=== PATIENT | female | born 1945 | race African-American/Black ===

== ENCOUNTER 2020-10-26 12:36 | Inpatient (IN) | payer OTHER, MEDICAID ==
[~2020-10-26] VITALS: Ht 165.1 cm; Wt 108.9 kg
[2020-10-26 12:36] VITALS: BP 180/109
--- NOTE | 2020-10-26 12:36 | NUR ---
ED Nurse Note: Pt walked in to ED from home c/o generalized body weakness onset this AM. Pt also c/o non radiating midsternal chest pain. Per pt, she felt dizzy after taking a new BP meds, pt unable to recall the meds name. No SOB, on room air. 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 AAOx4, verbally responsive. ERMD at bedside.
--- NOTE | 2020-10-26 12:55 | NUR ---
EMERGENCY CONTACT: Nino (son): [phone]
--- NOTE | 2020-10-26 13:15 | NUR ---
ED Nurse Note: Blood sent to lab.
--- NOTE | 2020-10-26 13:44 | NUR ---
ED Nurse Note: x-ray at bedside.
[2020-10-26 13:52] LABS: BASOPHILS % (AUTO) 0.5 % (0.0-2.0); EOSINOPHILS % (AUTO) 0.2 % (0.0-3.0); HEMATOCRIT 45.8 % (37.0-47.0); HEMOGLOBIN 13.8 G/DL (12.0-16.0); LYMPHOCYTES % (AUTO) 14.4 % (20.0-45.0); MEAN CORPUSCULAR VOLUME 82 FL (80-99); MONOCYTES % (AUTO) 4.8 % (1.0-10.0); NEUTROPHILS % (AUTO) 80.2 % (45.0-75.0); PLATELET COUNT 173 K/UL (150-450); RED BLOOD COUNT 5.56 M/UL (4.20-5.40); RED CELL DISTRIBUTION WIDTH 16.2 % (11.6-14.8); WHITE BLOOD COUNT 10.5 K/UL (4.8-10.8)
[2020-10-26 14:00] VITALS: BP 169/97
[2020-10-26 14:02] LABS: ANION GAP 6 mmol/L (5-15); BLOOD UREA NITROGEN 31 mg/dL (7-18); CALCIUM 8.5 MG/DL (8.5-10.1); CARBON DIOXIDE 27 MMOL/L (21-32); CHLORIDE 106 MMOL/L (98-107); POTASSIUM 3.3 MMOL/L (3.5-5.1); SODIUM 139 MMOL/L (136-145)
[2020-10-26 14:13] LABS: ALANINE AMINOTRANSFERASE 17 U/L (12-78); ALBUMIN 3.1 G/DL (3.4-5.0); ALKALINE PHOSPHATASE 109 U/L (46-116); ASPARTATE AMINO TRANSFERASE 17 U/L (15-37); BILIRUBIN,TOTAL 0.4 MG/DL (0.2-1.0)
--- NOTE | 2020-10-26 14:28 | Emergency Room Report ---
History of Present Illness General Chief Complaint: Dizziness Source: Patient, EMS (Enoch Rangel MD) Present Illness HPI 75-year-old female presents for evaluation. Brought in by EMS from home. Feeling dizzy and feels short of breath. Denied chest pain today but states she was having some discomfort in her chest yesterday. BP high. States she recently changed her BP meds. Does not know the name of the new ones. Denies fevers or chills. No other aggravating relieving factors. Denies any other associated symptoms (Enoch Rangel MD) Allergies: Coded Allergies: No Known Allergies (Unverified , 10/26/20) COVID-19 Screening Contact w/high risk pt: No Experienced COVID-19 symptoms?: No COVID-19 Testing performed COGNOS LEAD: No (Enoch Rangel MD) Patient History Past Medical History: DM, other - hyperlipidemia Social History: Denies: smoking, alcohol use, drug use Immunizations: UTD Reviewed Nursing Documentation: PMH: Agreed; PSxH: Agreed (Enoch Rangel MD) Nursing Documentation-PMH Hx Hypertension: Yes - HYPERLIPIDEMIA Hx Diabetes: Yes (Enoch Rangel MD) Review of Systems All Other Systems: negative except mentioned in HPI (Enoch Rangel MD) Physical Exam Vital Signs Date Time Temp Pulse Resp B/P (MAP) Pulse Ox O2 Delivery O2 Flow Rate FiO2 10/26/20 12:32 97.5 101 16 180/109 (132) 97 Room Air Sp02 EP Interpretation: reviewed, normal General Appearance: no apparent distress, alert, GCS 15, non-toxic, obese Head: normocephalic, atraumatic Eyes: bilateral eye normal inspection, bilateral eye PERRL ENT: hearing grossly normal, normal pharynx, no angioedema, normal voice Neck: full range of motion, supple/symm/no masses Respiratory: chest non-tender, lungs clear, normal breath sounds, speaking full sentences Cardiovascular #1: regular rate, rhythm, no edema Cardiovascular #2: 2+ carotid (R), 2+ carotid (L), 2+ radial (R), 2+ radial (L), 2+ dorsalis pedis (R), 2+ dorsalis pedis (L) Gastrointestinal: normal bowel sounds, non tender, soft, non-distended, no guarding, no rebound Rectal: deferred Genitourinary: normal inspection, no CVA tenderness Musculoskeletal: back normal, normal range of motion, gait/station normal, non- tender Neurologic: alert, motor strength/tone normal, oriented x3, sensory intact, responsive, speech normal Psychiatric: judgement/insight normal, memory normal, mood/affect normal, no suicidal/homicidal ideation Reflexes: 3+ bicep (R), 3+ bicep (L), 3+ tricep (R), 3+ tricep (L), 3+ knee (R), 3+ knee (L) Skin: other - see nursing notes Lymphatic: no adenopathy (Enoch Rangel MD) Medical Decision Making Diagnostic Impression: Primary Impression: ACS (acute coronary syndrome) Additional Impression: Hypertension Laboratory Tests Test 10/26/20 13:15 White Blood Count 10.5 K/UL (4.8-10.8) Red Blood Count 5.56 M/UL (4.20-5.40) H Hemoglobin 13.8 G/DL (12.0-16.0) Hematocrit 45.8 % (37.0-47.0) Mean Corpuscular Volume 82 FL (80-99) Mean Corpuscular Hemoglobin 24.8 PG (27.0-31.0) L Mean Corpuscular Hemoglobin Concent 30.1 G/DL (32.0-36.0) L Red Cell Distribution Width 16.2 % (11.6-14.8) H Platelet Count 173 K/UL (150-450) Mean Platelet Volume 8.6 FL (6.5-10.1) Neutrophils (%) (Auto) 80.2 % (45.0-75.0) H Lymphocytes (%) (Auto) 14.4 % (20.0-45.0) L Monocytes (%) (Auto) 4.8 % (1.0-10.0) Eosinophils (%) (Auto) 0.2 % (0.0-3.0) Basophils (%) (Auto) 0.5 % (0.0-2.0) Sodium Level 139 MMOL/L (136-145) Potassium Level 3.3 MMOL/L (3.5-5.1) L Chloride Level 106 MMOL/L (98-107) Carbon Dioxide Level 27 MMOL/L (21-32) Anion Gap 6 mmol/L (5-15) Blood Urea Nitrogen 31 mg/dL (7-18) H Creatinine 1.0 MG/DL (0.55-1.30) Estimat Glomerular Filtration Rate > 60 mL/min (>60) Glucose Level 173 MG/DL (74-106) H Calcium Level 8.5 MG/DL (8.5-10.1) Total Bilirubin 0.4 MG/DL (0.2-1.0) Aspartate Amino Transf (AST/SGOT) 17 U/L (15-37) Alanine Aminotransferase (ALT/SGPT) 17 U/L (12-78) Alkaline Phosphatase 109 U/L (46-116) Troponin I 0.007 ng/mL (0.000-0.056) Pro-B-Type Natriuretic Peptide 407 pg/mL (0-125) H Total Protein 6.1 G/DL (6.4-8.2) L Albumin 3.1 G/DL (3.4-5.0) L Globulin 3.0 g/dL Albumin/Globulin Ratio 1.0 (1.0-2.7) (Enoch Rangel MD) ER Course Please see above note. Discussed with Dr. Lara. (Shawn Moore MD) EKG Diagnostic Results Troponin ordered: Yes Rate: normal Rhythm: NSR ST Segments: no acute changes ASA given to the pt in ED: Yes (Enoch Rangel MD) Rhythm Strip Diag. Results EP Interpretation: yes Rhythm: NSR, no PVC's, no ectopy (Enoch Rangel MD) Chest X-Ray Diagnostic Results Chest X-Ray Diagnostic Results : Chest X-Ray Ordered: Yes # of Views/Limited/Complete: 1 View Indication: Shortness of Breath EP Interpretation: Yes Interpretation: no pneumothorax, other - cardiomegaly Impression: Other - cardiomegaly Electronically Signed by: Electronically signed by Enoch Rangel MD (Enoch Rangel MD) Last Vital Signs Date Time Temp Pulse Resp B/P (MAP) Pulse Ox O2 Delivery O2 Flow Rate FiO2 10/26/20 12:36 97.5 101 16 180/109 97 Room Air Status: improved (Enoch Rangel MD) Status: improved (Shawn Moore MD) Disposition: ADMITTED INPATIENT Condition: Serious Referrals: NOT CHOSEN IPA/,REFERRING (PCP) Enoch Rangel MD Oct 26, 2020 14:28 Shawn Moore MD Oct 26, 2020 17:03
[2020-10-26] MEDS ORDERED: Lidocaine 2% Visc 15ml soln ORAL ONE (15:30)
[2020-10-26] MEDS ORDERED: Mylanta II UD 30ml ORAL ONE (15:30)
--- NOTE | 2020-10-26 15:39 | Diagnostic Imaging Report ---
Indication: Shortness of breath Technique: XRAY Chest 1v Comparison: None Findings: Heart is enlarged. Mediastinal contours are sharp. There is slight thickening of the right paratracheal stripe. Atherosclerotic calcification is noted in the aorta. No definite focal consolidation is seen. No pleural effusion or pneumothorax. There are degenerative changes in the spine. No acute abnormality. Impression: Cardiomegaly. Slight prominence of the right paratracheal stripe compared to the related to ectatic vasculature. Possibility of lymphadenopathy or neoplastic soft tissue thickening in this region not excluded. Recommend follow-up CT of the chest, ideally with contrast. No focal airspace consolidation, pleural effusion or pneumothorax.
[2020-10-26 16:52] VITALS: BP 137/73
[2020-10-26 18:01] VITALS: BP 140/90
[2020-10-26] MEDS ORDERED: OMEPRAZOLE20 M2 ORAL (18:16)
[2020-10-26] MEDS ORDERED: ASPIRIN81 MG ORAL (18:16)
[2020-10-26] MEDS ORDERED: ATORVASTATIN CA20 MG ORAL (18:16)
[2020-10-26] MEDS ORDERED: ZETIA10 MG ORAL (18:16)
[2020-10-26] MEDS ORDERED: ISOSORBIDE MONO20 MG PO (18:16)
[2020-10-26] MEDS ORDERED: DIOVAN320 MG ORAL (18:16)
[2020-10-26] MEDS ORDERED: HYDROCHLOROTHIA50 MG ORAL (18:16)
[2020-10-26] MEDS ORDERED: DEXILANT60 MG ORAL (18:16)
[2020-10-26] MEDS ORDERED: ACTOS15 MG ORAL (18:16)
--- NOTE | 2020-10-26 18:19 | NUR ---
ED Nurse Note: report given to kyle craig
--- NOTE | 2020-10-26 18:30 | NUR ---
TRANSFER TO FLOOR: Patient transferred to Telemetry via gurney accompanied by 2 RN. Pt AAOx4, no SOB. on room air. IV line on left AC 18g patent and intact. No skin issues. All belongings sent with the patient.
--- NOTE | 2020-10-26 18:30 | NUR ---
NURSE NOTES: patient received from ER. Patients belongings verified and acknowledged patient oriented to room. patient in stable condition, AAOx4 with no complaints of chest pain. patient on room air with oxygen saturation within normal limits. the patients bed was placed in lowest position locked, side rails x3 bed alarm in zone 1 and call light within reach. Patient instructed to press call light for further needs.
[2020-10-26] MEDS ORDERED: Heparin 25,000u/D5W 500ml 500 ML IV SCH (19:15)
--- NOTE | 2020-10-26 19:53 | NUR ---
NURSE HAND-OFF REPORT: Important Events on Shift:[patient admitted from ED at 1830] Patient Status: [Full code] Diet: [N/A] Pending Orders: [N/A] Pending Results/Labs:[N/A] Pending MD notification:[N/A] Latest Vital Signs: Temperature 97.5 , Pulse 95 , B/P 140 /90 , Respiratory Rate 16 , O2 SAT 100 , Room Air, O2 Flow Rate . Vital Sign Comment: [] EKG Rhythm: Sinus Rhythm Rhythm change?: MD Notified?: - MD Response: Latest Brown Fall Score: Fall Risk: Safety Measures: Call light , Bed Alarm , Side Rails , Bed position . Fall Precautions: Report given to [MARLEY Singh].
--- NOTE | 2020-10-26 19:57 | NUR ---
NURSE NOTES: Report received from MARLEY Llamas. Patient is awake on bed, alert and oriented x 4/ personnel monitor is in place, shows sinus rhythm with no complaints of chest pain at this time. On room air, saturating 98% and no difficulty nor shortness of breath. On cardiac diet, instructed and amenable. IV site is on left AC g-18 saline locked that is patent and intact. Patient is continent and use bedside commode. Safety measures are in place, bed in lowest and locked position, side rails up x 2, call light button and bedside table within reach, instructed to call for any assistance needed, will continue plan of care.
[2020-10-26 20:00] VITALS: BP 151/98
--- NOTE | 2020-10-26 20:28 | NUR ---
NURSE NOTES: Called Dr. Lara to get an order for pain medication and informed him about patient's complaints of pain on right lower leg. Awaiting for call back.
[2020-10-26] MEDS: Heparin 5000 units/ml inj SUBQ SCH (21:28)
--- NOTE | 2020-10-26 21:40 | NUR ---
NURSE NOTES: Received an order from Dr. Lara, will carry out.
[2020-10-26] MEDS ORDERED: Metoprolol Tartrate 50mg tab ORAL ONE (22:45)
--- NOTE | 2020-10-26 23:20 | NUR ---
NURSE NOTES: Patient complaints of generalized itchiness, called and order received. Will carry out.
--- NOTE | 2020-10-26 23:29 | Consultation ---
DATE OF CONSULTATION: 10/26/2020 CARDIOLOGY CONSULTATION CONSULTING PHYSICIAN: Shawn Pérez M.D. REQUESTING PHYSICIAN: Clarence Lara M.D. REASON: Acute coronary syndrome. HISTORY OF PRESENT ILLNESS: This is a 75-year-old female with risk factors for premature coronary artery disease. She presented to the emergency room complaining of dizziness and shortness of breath. She was noted to have a significantly elevated blood pressure as well. She noted chest discomfort yesterday, but not today. She apparently recently had changes in her medication regimen, although does not recall the names. She has not had any other changes in her medical condition. She denies recent illness or COVID-19 exposures. PAST MEDICAL HISTORY: Includes hypertension, hyperlipidemia, type 2 diabetes mellitus, gastroesophageal reflux disease. ALLERGIES: None known. MEDICATIONS: Reviewed and reconciled. FAMILY HISTORY: Noncontributory. SOCIAL HISTORY: Negative for smoking, alcohol, or substance abuse. REVIEW OF SYSTEMS: No fevers or chills. No COVID-19 symptoms or exposures. No history of seizure or stroke. No change in bowel habits. She does take proton pump inhibitor therapy. There is no known history of kidney disease. Diabetes is reportedly managed with diet. There is no history of asthma or abnormal blood clotting. There is no known history of thyroid disorder. PHYSICAL EXAMINATION: VITAL SIGNS: Blood pressure 180/109, pulse 101, respirations 16, afebrile, oxygen saturation on room air 97%. HEENT: Conjunctivae pink. Oropharynx clear. NECK: Supple. Jugular venous pressure is slightly elevated. No bruits. LUNGS: Clear. CARDIAC: Regular rhythm and rate. Normal S1, S2 with a fourth heart sound. ABDOMEN: Soft, nontender. No bruits. EXTREMITIES: Good pulses. No edema. NEUROLOGIC: Nonfocal. LABORATORY AND DIAGNOSTIC DATA: Chest x-ray reveals possible paratracheal thickening. EKG reveals sinus rhythm, no acute ST-T wave abnormalities. Troponin is 0.07. White count 10, hemoglobin 13.8. Sodium 139, potassium 3.3, bicarb 27, BUN 31, creatinine 1. Pro-natriuretic peptide is 407. Albumin 3.1. IMPRESSION: 1. Hypertensive urgency. 2. Acute coronary syndrome. 3. Hypokalemia. 4. Type 2 diabetes mellitus. 5. Mild protein-calorie malnutrition. 6. Acute diastolic congestive heart failure, likely precipitated by blood pressure elevation. PLAN: 1. Cardiac monitoring. 2. Serial troponins. 3. Check lipid panel and thyroid function. 4. Replace potassium. 5. Check magnesium. 6. Antiplatelet therapy. 7. DVT prophylaxis. 8. Cautious up titration of multi-drug antihypertensive and antianginal regimen. 9. Further recommendations to follow, which may include myocardial perfusion scan. Shawn Pérez M.D. DR: JANNA JOB#: [id number] CC:
[2020-10-26] MEDS ORDERED: DiphenhydrAMINE 50mg/ml Inj IVP PRN (23:30)
[2020-10-26] MEDS: Nitroglycerin 2% oint pkt TOPIC SCH (23:53)
[2020-10-27] VITALS: BP 143/86
--- NOTE | 2020-10-27 00:29 | History and Physical Report ---
DATE OF ADMISSION: 10/26/2020 HISTORY OF PRESENT ILLNESS: This is a 75-year-old female who came to the hospital with complaints of chest pain. She was seen and evaluated in the emergency room. She felt dizzy and short of breath. She also reported that blood pressure has been high recently. The patient home medications. At this time, she appears to be comfortable. Denies chest pain on my assessment. PAST MEDICAL HISTORY: Notable for diabetes mellitus, hyperlipidemia, hypertension. SOCIAL HISTORY: No alcohol or tobacco usage. REVIEW OF SYSTEMS: Denies any headaches, hematemesis, melena, hematochezia, or weight loss. PHYSICAL EXAMINATION: GENERAL: A 75-year-old female. HEENT: Unremarkable. LUNGS: Clear breath sounds bilaterally. ABDOMEN: Soft. EXTREMITIES: There is no edema. VITAL SIGNS: Blood pressure 140/90, heart rate 74, respirations 18, O2 sat 98% on room air. LABORATORY DATA: Lab testing shows normal CBC and BMP. Troponin is negative x1. X-ray chest was obtained, which shows clear lung langley bilaterally. EKG shows normal sinus rhythm. IMPRESSION: 1. Chest pain. 2. Diabetes mellitus. 3. Hyperlipidemia. DISCUSSION: Admit to the hospital. Troponins. Consult Cardiology. Consider stress test. We will follow carefully. Clarence Lara M.D. DR: FRANDY JOB#: [id number] CC:
[2020-10-27 04:00] VITALS: BP 118/90
[2020-10-27] MEDS: Nitroglycerin 2% oint pkt TOPIC SCH ×3 (06:23→17:52)
[2020-10-27] MEDS ORDERED: NovoLOG Insulin Flexpen SUBQ SCH (06:30)
[2020-10-27] MEDS: NovoLOG Insulin Flexpen SUBQ SCH ×4 (06:36→22:16)
--- NOTE | 2020-10-27 07:37 | NUR ---
NURSE HAND-OFF REPORT: Important Events on Shift: Patient complaints of headache, generalized itchiness and nausea, medications were given. No chest pain nor notd the whoel shift Patient Status: Patient is awake on bed ins tabel condition. Plan of care endorsed. Diet: Cardiac diet Pending Orders: Venous duplex scan, AM lab draws and repeat troponin @ 1700 Pending Results/Labs:none Pending MD notification:none Latest Vital Signs: Temperature 97.8 , Pulse 82 , B/P 118 /70 , Respiratory Rate 18 , O2 SAT 94 , Room Air, O2 Flow Rate . Vital Sign Comment: stable EKG Rhythm: Sinus Rhythm Rhythm change?: N MD Notified?: - MD Response: Latest Brown Fall Score: 45 Fall Risk: High Risk Safety Measures: Call light Within Reach, Bed Alarm Zone 1, Side Rails Side Rails x2, Bed position Low and Locked. Fall Precautions: Patient Fall Education Report given to MARLEY Mittal.
[2020-10-27 08:00] VITALS: BP 153/71
--- NOTE | 2020-10-27 08:12 | NUR ---
NURSE NOTES: Received patient from MARLEY Gonsalves. Patient is AO x4 awake and able to make needs known. Patient shows no signs of distress or pain at the time. IV is intact and patent. There are no signs of erythema, infiltration, or bleeding. Patient is on room air and shows no signs of respiratory distress. Bed is in the lowest position, call light is within reach, side rails up x3. Will continue to monitor.
--- NOTE | 2020-10-27 08:48 | Pulmonology Progress Note ---
Subjective Interval Events: States chest pain has resolved Constitutional: Reports: no symptoms HEENT: Repors: no symptoms Respiratory: Reports: no symptoms Cardiovascular: Reports: no symptoms Gastrointestinal/Abdominal: Reports: no symptoms Allergies: Coded Allergies: No Known Allergies (Unverified , 10/26/20) Objective Last 24 Hour Vital Signs Date Time Temp Pulse Resp B/P (MAP) Pulse Ox O2 Delivery O2 Flow Rate FiO2 10/27/20 08:00 97.4 91 20 153/71 (98) 94 10/27/20 06:23 118/70 10/27/20 04:00 82 10/27/20 04:00 97.8 86 18 118/90 (99) 94 10/27/20 00:00 97.8 94 18 143/86 (105) 95 10/27/20 00:00 92 10/26/20 23:53 151/98 10/26/20 23:53 99 151/98 10/26/20 21:34 Room Air 10/26/20 20:00 99 10/26/20 20:00 98.3 102 18 151/98 (115) 96 10/26/20 18:30 97.5 95 16 140/90 100 Room Air 10/26/20 18:01 97.5 95 16 140/90 100 Room Air 10/26/20 16:52 97.5 82 17 137/73 99 Room Air 10/26/20 15:31 180/109 10/26/20 14:00 97.5 89 19 169/97 100 Room Air 10/26/20 12:36 97.5 101 16 180/109 97 Room Air 10/26/20 12:36 101 16 Room Air 10/26/20 12:32 97.5 101 16 180/109 (132) 97 Room Air General Appearance: no acute distress HEENT: normocephalic Respiratory: chest wall non-tender Cardiovascular: normal peripheral pulses Abdomen: normal bowel sounds Laboratory Tests 10/26/20 13:15: White Blood Count 10.5, Red Blood Count 5.56H, Hemoglobin 13.8, Hematocrit 45.8, Mean Corpuscular Volume 82, Mean Corpuscular Hemoglobin 24.8L, Mean Corpuscular Hemoglobin Concent 30.1L, Red Cell Distribution Width 16.2H, Platelet Count 173, Mean Platelet Volume 8.6, Neutrophils (%) (Auto) 80.2H, Lymphocytes (%) (Auto) 14.4L, Monocytes (%) (Auto) 4.8, Eosinophils (%) (Auto) 0.2, Basophils (%) (Auto) 0.5, Sodium Level 139, Potassium Level 3.3L, Chloride Level 106, Carbon Dioxide Level 27, Anion Gap 6, Blood Urea Nitrogen 31H, Creatinine 1.0, Estimat Glomerular Filtration Rate > 60, Glucose Level 173H, Calcium Level 8.5, Total Bilirubin 0.4, Aspartate Amino Transf (AST/SGOT) 17, Alanine Aminotransferase (ALT/SGPT) 17, Alkaline Phosphatase 109, Troponin I 0.007, Pro-B-Type Natriuretic Peptide 407H, Total Protein 6.1L, Albumin 3.1L, Globulin 3.0, Albumin/Globulin Ratio 1.0 10/26/20 19:50: Activated Partial Thromboplast Time 26 10/27/20 00:50: Troponin I 0.012 10/27/20 06:25: POC Whole Blood Glucose 186H Current Medications Medications (Trade) Dose Ordered Sig/Liz Route PRN Reason Start Time Stop Time Status Last Admin Dose Admin Acetaminophen (Tylenol) 650 mg Q6H PRN ORAL For Headache 10/26/20 21:45 11/25/20 21:44 10/27/20 06:45 Aspirin (ASA) 162 mg DAILY ORAL 10/27/20 09:00 12/11/20 08:59 Atorvastatin Calcium (Lipitor) 20 mg BEDTIME ORAL 10/27/20 21:00 01/25/21 20:59 Dextrose (Dextrose 50%) 25 ml Q30M PRN IV Hypoglycemia 10/26/20 22:45 01/24/21 22:44 Dextrose (Dextrose 50%) 50 ml Q30M PRN IV Hypoglycemia 10/26/20 22:45 01/24/21 22:44 Diphenhydramine HCl (Benadryl) 25 mg Q6H PRN IVP Itching 10/26/20 23:30 11/25/20 23:29 10/27/20 00:06 Heparin Sodium (Porcine) (Heparin 5000 units/ml) 5,000 units EVERY 12 HOURS SUBQ 10/26/20 21:00 12/10/20 20:59 10/26/20 21:28 Insulin Aspart (NovoLOG) BEFORE MEALS AND HS SUBQ 10/27/20 06:30 01/25/21 06:29 10/27/20 06:36 Losartan Potassium (Cozaar) 100 mg DAILY ORAL 10/27/20 09:00 11/26/20 08:59 Metoprolol Tartrate (Lopressor) 50 mg Q12HR ORAL 10/27/20 09:00 01/25/21 08:59 Nitroglycerin (Nitro-Bid) 1 inch TID@0600,1200,1800 TOPIC 10/26/20 22:45 11/25/20 22:44 10/27/20 06:23 Ondansetron HCl (Zofran) 4 mg Q6H PRN IVP Nausea & Vomiting 10/26/20 21:45 11/25/20 21:44 10/26/20 22:15 Pantoprazole (Protonix) 40 mg DAILY ORAL 10/27/20 09:00 11/26/20 08:59 Assessment/Plan Assessment/Plan IMPRESSION: 1. Hypertensive urgency. 2. Acute coronary syndrome. 3. Hypokalemia. 4. Type 2 diabetes mellitus. 5. Mild protein-calorie malnutrition. 6. Acute diastolic congestive heart failure, likely precipitated by blood pressure elevation. PLAN: 1. Cardiac monitoring. 2. Serial troponins. 3. Check lipid panel and thyroid function. 4. Replace potassium. 5. Check magnesium. 6. Antiplatelet therapy. 7. DVT prophylaxis. 8. Cautious up titration of multi-drug antihypertensive and antianginal regimen. 9.Cardiology consult noted Clarence Lara MD Oct 27, 2020 08:48
[2020-10-27] MEDS ORDERED: Aspirin Baby 81mg ORAL SCH (09:00)
[2020-10-27] MEDS: Aspirin Baby 81mg ORAL SCH (09:12)
[2020-10-27] MEDS: hydroCHLOROthiazide 25mg cap ORAL SCH (09:13)
[2020-10-27] MEDS: Losartan 50mg tab ORAL SCH (09:13)
[2020-10-27] MEDS: Metoprolol Tartrate 50mg tab ORAL SCH ×2 (09:13→21:54)
[2020-10-27] MEDS: Heparin 5000 units/ml inj SUBQ SCH ×2 (09:15→21:56)
--- NOTE | 2020-10-27 09:39 | Diagnostic Imaging Report ---
EXAM: US Duplex Bilateral Lower Extremities Veins CLINICAL HISTORY: PAIN TECHNIQUE: Real-time duplex ultrasound scan of the bilateral lower extremity veins integrating B-mode two-dimensional vascular structure, Doppler spectral analysis, color flow Doppler imaging and compression. COMPARISON: No relevant prior studies available. FINDINGS: Right deep veins: No DVT in the right common femoral, femoral, proximal deep femoral or popliteal veins. The veins demonstrate normal color flow, are normally compressible, with normal phasic flow and/or augmentation response. Right superficial veins: No thrombus in the visualized right great saphenous vein. Left deep veins: No DVT in the left common femoral, femoral, proximal deep femoral or popliteal veins. The veins demonstrate normal color flow, are normally compressible, with normal phasic flow and/or augmentation response. Left superficial veins: No thrombus in the visualized left great saphenous vein. IMPRESSION: No deep venous thrombosis of the bilateral lower extremities.
[2020-10-27 10:04] LABS: ALANINE AMINOTRANSFERASE 22 U/L (12-78); ALBUMIN 3.7 G/DL (3.4-5.0); ALKALINE PHOSPHATASE 127 U/L (46-116); ANION GAP 7 mmol/L (5-15); ASPARTATE AMINO TRANSFERASE 20 U/L (15-37); BILIRUBIN,TOTAL 0.4 MG/DL (0.2-1.0); BLOOD UREA NITROGEN 36 mg/dL (7-18); CALCIUM 9.9 MG/DL (8.5-10.1); CARBON DIOXIDE 31 MMOL/L (21-32); CHLORIDE 101 MMOL/L (98-107); CHOLESTEROL 139 MG/DL (< 200); CREATININE 1.5 MG/DL (0.55-1.30); HDL CHOLESTEROL 54 MG/DL (40-60); POTASSIUM 4.5 MMOL/L (3.5-5.1); SODIUM 139 MMOL/L (136-145); TRIGLYCERIDES 221 MG/DL (30-150)
[2020-10-27 12:00] VITALS: BP 149/76
--- NOTE | 2020-10-27 15:22 | NUR ---
CASE MANAGEMENT:REVIEW 75 YR OLD FEMALE BIBA FROM HOME CC; GENERALIZED WEAKNESS. TOOK NEW MEDICATION SI:ACS. HYPERTENSION 97.6 101 16 180/109 97% ON RA K-3.3 BUN+31 IS: ASA PO IV HYDRALAZINE IV PEPCID : TO TELEMETRY UNIT DCP: FROM HOME
[2020-10-27 16:00] VITALS: BP 141/90
--- NOTE | 2020-10-27 19:34 | NUR ---
NURSE HAND-OFF REPORT: Important Events on Shift:[Nothing new through out shift] Patient Status: [full code] Diet: [Cardiac] Pending Orders: [] Pending Results/Labs:[] Pending MD notification:[] Latest Vital Signs: Temperature 97.2 , Pulse 78 , B/P 141 /90 , Respiratory Rate 21 , O2 SAT 96 , Room Air, O2 Flow Rate . Vital Sign Comment: [] EKG Rhythm: Sinus Rhythm Rhythm change?: N MD Notified?: - MD Response: Latest Brown Fall Score: 45 Fall Risk: High Risk Safety Measures: Call light Within Reach, Bed Alarm Zone 2, Side Rails Side Rails x2, Bed position Low and Locked. Fall Precautions: Yellow Socks Yellow Gown Patient Fall Education Report given to [MARLEY Walsh].
--- NOTE | 2020-10-27 19:34 | NUR ---
NURSE NOTES: Received report from Daxa ROACH. Upon assessment pt is A/Ox4. Well kempt. PERRLA. 0/10 pain. 5-leak EKG SR. Vitals stable. Afebrile. Saturating 96% on room air. Clear breath sounds auscultated throughout. RLQ bowel sounds are active. Left #18 gauge patent and intact. No cardiopulmonary distress noted. Bed kept in lowest and locked position. Side rails up x2. Call light within reach. Will continue monitoring.
[2020-10-27 20:00] VITALS: BP 119/75
[2020-10-27] MEDS ORDERED: Atorvastatin 20mg tab ORAL SCH ×2 (21:00)
--- NOTE | 2020-10-27 22:15 | NUR ---
NURSE NOTES: BSG 152. Insulin given. Pt requesting snack. Will monitor.
[2020-10-28] VITALS: BP 130/78
--- NOTE | 2020-10-28 02:10 | Cardiology Progress Note ---
Subjective DATE OF SERVICE: Oct 27, 2020 BP parameters improved. No recurrent CP; denies SOB. Troponins negative Venous duplex: negative for DVT Objective Last 24 Hour Vital Signs Date Time Temp Pulse Resp B/P (MAP) Pulse Ox O2 Delivery O2 Flow Rate FiO2 10/28/20 00:00 98.2 81 20 130/78 (95) 96 10/27/20 21:54 80 119/75 10/27/20 21:00 Room Air 10/27/20 20:00 97.6 80 18 119/75 (90) 96 10/27/20 20:00 80 10/27/20 17:52 141/90 10/27/20 16:00 78 10/27/20 16:00 97.2 82 21 141/90 (107) 96 10/27/20 12:09 149/93 10/27/20 12:00 79 10/27/20 12:00 98.1 80 20 149/76 (100) 97 10/27/20 09:13 153/71 10/27/20 09:13 91 153/71 10/27/20 09:00 Room Air 10/27/20 08:00 97.4 91 20 153/71 (98) 94 10/27/20 08:00 97 10/27/20 06:23 118/70 10/27/20 04:00 82 10/27/20 04:00 97.8 86 18 118/90 (99) 94 HEENT: normal ENT inspection RHYTHM: NSR LUNGS: lungs clear bilaterally CARDIAC: normal rate, regular rhythm, normal S1 and S2, gallop/S4 ABDOMEN: normal bowel sounds, non tender, soft, no organomegaly EXTREMITIES: normal range of motion, non-tender, trace edema Laboratory Tests Test 10/27/20 06:25 10/27/20 09:00 10/27/20 11:39 10/27/20 16:34 POC Whole Blood Glucose 186 MG/DL (74-106) H 185 MG/DL (74-106) H 142 MG/DL (74-106) H Sodium Level 139 MMOL/L (136-145) Potassium Level 4.5 MMOL/L (3.5-5.1) Chloride Level 101 MMOL/L (98-107) Carbon Dioxide Level 31 MMOL/L (21-32) Anion Gap 7 mmol/L (5-15) Blood Urea Nitrogen 36 mg/dL (7-18) H Creatinine 1.5 MG/DL (0.55-1.30) H Estimat Glomerular Filtration Rate 41.1 mL/min (>60) Glucose Level 250 MG/DL (74-106) H Hemoglobin A1c 9.8 % (4.3-6.0) H Calcium Level 9.9 MG/DL (8.5-10.1) Magnesium Level 2.3 MG/DL (1.8-2.4) Total Bilirubin 0.4 MG/DL (0.2-1.0) Aspartate Amino Transf (AST/SGOT) 20 U/L (15-37) Alanine Aminotransferase (ALT/SGPT) 22 U/L (12-78) Alkaline Phosphatase 127 U/L (46-116) H Troponin I 0.007 ng/mL (0.000-0.056) Total Protein 7.3 G/DL (6.4-8.2) Albumin 3.7 G/DL (3.4-5.0) Globulin 3.6 g/dL Albumin/Globulin Ratio 1.0 (1.0-2.7) Triglycerides Level 221 MG/DL (30-150) H Cholesterol Level 139 MG/DL (< 200) LDL Cholesterol 56 mg/dL (<100) HDL Cholesterol 54 MG/DL (40-60) Cholesterol/HDL Ratio 2.6 (3.3-4.4) L Thyroid Stimulating Hormone (TSH) 4.859 uiU/mL (0.358-3.740) Test 10/27/20 19:40 10/27/20 22:06 Troponin I 0.005 ng/mL (0.000-0.056) POC Whole Blood Glucose Pending Assessment/Plan Assessment/Plan Hypertensive urgency Acute coronary syndrome precipitated by above Acute diastolic CHF resolved Abnormal CXR Titrate antiHTN meds Continue antiplt meds Repeat CXR Outpatient stress test Shawn Pérez MD Oct 28, 2020 02:10
[2020-10-28 04:00] VITALS: BP 134/83
--- NOTE | 2020-10-28 04:21 | NUR ---
NURSE NOTES: Pt ambulating to restroom with cane to urinate numerous times throughout the night. No c/o dizziness or SOB. No cardiopulmonary distress noted.
[2020-10-28] MEDS: NovoLOG Insulin Flexpen SUBQ SCH ×3 (05:59→16:35)
--- NOTE | 2020-10-28 07:26 | NUR ---
NURSE HAND-OFF REPORT: Important Events on Shift: PLAN FOR XRAY 2 VIEWS & STRESS TEST Patient Status: Stable Diet: Cardiac Pending Orders: N Pending Results/Labs: Pending MD notification:N Latest Vital Signs: Temperature 97.9 , Pulse 74 , B/P 134 /83 , Respiratory Rate 20 , O2 SAT 96 , Room Air, O2 Flow Rate . Vital Sign Comment: WNL EKG Rhythm: Sinus Rhythm Rhythm change?: N MD Notified?: - MD Response: Latest Brown Fall Score: 45 Fall Risk: High Risk Safety Measures: Call light Within Reach, Bed Alarm Zone 1, Side Rails Side Rails x2, Bed position Low and Locked. Fall Precautions: Yellow Socks Yellow Gown Patient Fall Education Report given to MARLEY Berg.
--- NOTE | 2020-10-28 07:30 | Pulmonology Progress Note ---
Subjective Interval Events: States chest pain has resolved Constitutional: Reports: no symptoms HEENT: Repors: no symptoms Respiratory: Reports: no symptoms Cardiovascular: Reports: no symptoms Gastrointestinal/Abdominal: Reports: no symptoms Allergies: Coded Allergies: No Known Allergies (Unverified , 10/26/20) Objective Last 24 Hour Vital Signs Date Time Temp Pulse Resp B/P (MAP) Pulse Ox O2 Delivery O2 Flow Rate FiO2 10/28/20 04:00 74 10/28/20 04:00 97.9 83 20 134/83 (100) 96 10/28/20 00:00 98.2 81 20 130/78 (95) 96 10/28/20 00:00 76 10/27/20 21:54 80 119/75 10/27/20 21:00 Room Air 10/27/20 20:00 97.6 80 18 119/75 (90) 96 10/27/20 20:00 80 10/27/20 17:52 141/90 10/27/20 16:00 78 10/27/20 16:00 97.2 82 21 141/90 (107) 96 10/27/20 12:09 149/93 10/27/20 12:00 79 10/27/20 12:00 98.1 80 20 149/76 (100) 97 10/27/20 09:13 153/71 10/27/20 09:13 91 153/71 10/27/20 09:00 Room Air 10/27/20 08:00 97.4 91 20 153/71 (98) 94 10/27/20 08:00 97 General Appearance: no acute distress HEENT: normocephalic Respiratory: chest wall non-tender Cardiovascular: normal peripheral pulses Abdomen: normal bowel sounds Laboratory Tests 10/27/20 09:00: Sodium Level 139, Potassium Level 4.5, Chloride Level 101, Carbon Dioxide Level 31, Anion Gap 7, Blood Urea Nitrogen 36H, Creatinine 1.5H, Estimat Glomerular Filtration Rate 41.1, Glucose Level 250H, Hemoglobin A1c 9.8H, Calcium Level 9.9, Magnesium Level 2.3, Total Bilirubin 0.4, Aspartate Amino Transf (AST/SGOT) 20, Alanine Aminotransferase (ALT/SGPT) 22, Alkaline Phosphatase 127H, Troponin I 0.007, Total Protein 7.3, Albumin 3.7, Globulin 3.6, Albumin/Globulin Ratio 1.0, Triglycerides Level 221H, Cholesterol Level 139, LDL Cholesterol 56, HDL Ch olesterol 54, Cholesterol/HDL Ratio 2.6L, Thyroid Stimulating Hormone (TSH) 4.859H 10/27/20 11:39: POC Whole Blood Glucose 185H 10/27/20 16:34: POC Whole Blood Glucose 142H 10/27/20 19:40: Troponin I 0.005 10/27/20 22:06: POC Whole Blood Glucose [Pending] 10/28/20 05:56: POC Whole Blood Glucose 170H Current Medications Medications (Trade) Dose Ordered Sig/Liz Route PRN Reason Start Time Stop Time Status Last Admin Dose Admin Acetaminophen (Tylenol) 650 mg Q6H PRN ORAL For Headache 10/26/20 21:45 11/25/20 21:44 10/27/20 06:45 Aspirin (ASA) 81 mg DAILY ORAL 10/27/20 09:00 12/11/20 08:59 10/27/20 09:12 Atorvastatin Calcium (Lipitor) 20 mg BEDTIME ORAL 10/27/20 21:00 01/25/21 20:59 10/27/20 21:54 Dextrose (Dextrose 50%) 25 ml Q30M PRN IV Hypoglycemia 10/26/20 22:45 01/24/21 22:44 Dextrose (Dextrose 50%) 50 ml Q30M PRN IV Hypoglycemia 10/26/20 22:45 01/24/21 22:44 Diphenhydramine HCl (Benadryl) 25 mg Q6H PRN IVP Itching 10/26/20 23:30 11/25/20 23:29 10/27/20 00:06 EZETIMIBE (Zetia) 10 mg BEDTIME ORAL 10/27/20 21:00 11/26/20 20:59 10/27/20 21:54 Heparin Sodium (Porcine) (Heparin 5000 units/ml) 5,000 units EVERY 12 HOURS SUBQ 10/26/20 21:00 12/10/20 20:59 10/27/20 21:56 Hydrochlorothiazide (Hydrodiuril) 50 mg DAILY ORAL 10/27/20 09:00 11/26/20 08:59 10/27/20 09:13 Insulin Aspart (NovoLOG) BEFORE MEALS AND HS SUBQ 10/27/20 06:30 01/25/21 06:29 10/28/20 05:59 Losartan Potassium (Cozaar) 100 mg DAILY ORAL 10/27/20 09:00 11/26/20 08:59 10/27/20 09:13 Metoprolol Tartrate (Lopressor) 50 mg Q12HR ORAL 10/27/20 09:00 01/25/21 08:59 10/27/20 21:54 Ondansetron HCl (Zofran) 4 mg Q6H PRN IVP Nausea & Vomiting 10/26/20 21:45 11/25/20 21:44 10/26/20 22:15 Pantoprazole (Protonix) 40 mg DAILY ORAL 10/27/20 09:00 11/26/20 08:59 10/27/20 09:13 Pioglitazone HCl (Actos) 15 mg DAILY ORAL 10/27/20 09:00 11/26/20 08:59 10/27/20 09:12 Assessment/Plan Assessment/Plan IMPRESSION: 1. Hypertensive urgency. 2. Acute coronary syndrome. 3. Hypokalemia. 4. Type 2 diabetes mellitus. 5. Mild protein-calorie malnutrition. 6. Acute diastolic congestive heart failure, likely precipitated by blood pressure elevation. PLAN: 1. Cardiac monitoring. 2. Serial troponins noted 3. Noted ipid panel and thyroid function. 4. Replaced potassium. 5. Venous duplex negative 6. Antiplatelet therapy. 7. DVT prophylaxis. 8. Cautious up titration of multi-drug antihypertensive and antianginal regimen. 9.Cardiology consult noted; patient cleared for discharge Clarence Lara MD Oct 28, 2020 07:30
--- NOTE | 2020-10-28 07:30 | NUR ---
NURSE NOTES: Received patient from MARLEY Wong. Patient is A/A/O x4. Able to make needs known. PIV patent and intact. no signs of erythema, infiltration, or bleeding. ambulates with cane. kept bed in the lowest position. call light is within reach, siderails up x3. bed brakes engaged. Will continue to monitor.
[2020-10-28] MEDS ORDERED: METOPROLOL TART50 MG ORAL (07:32)
[2020-10-28 08:00] VITALS: BP 132/77
[2020-10-28] MEDS: Aspirin Baby 81mg ORAL SCH (08:05)
[2020-10-28] MEDS: Metoprolol Tartrate 50mg tab ORAL SCH (08:05)
[2020-10-28] MEDS: hydroCHLOROthiazide 25mg cap ORAL SCH (08:06)
[2020-10-28] MEDS: Losartan 50mg tab ORAL SCH (08:06)
[2020-10-28] MEDS: Heparin 5000 units/ml inj SUBQ SCH (08:07)
--- NOTE | 2020-10-28 08:30 | NUR ---
NURSE NOTES: given prune juice c/o constipation. spoke with MARY Alfonso. will cont to monitor.
[2020-10-28] MEDS ORDERED: Docusate 100mg cap ORAL SCH (10:15)
--- NOTE | 2020-10-28 10:23 | Pulmonology Progress Note ---
Subjective Interval Events: States chest pain has resolved Constitutional: Reports: no symptoms HEENT: Repors: no symptoms Respiratory: Reports: no symptoms Cardiovascular: Reports: no symptoms Gastrointestinal/Abdominal: Reports: no symptoms Allergies: Coded Allergies: No Known Allergies (Unverified , 10/26/20) Objective Last 24 Hour Vital Signs Date Time Temp Pulse Resp B/P (MAP) Pulse Ox O2 Delivery O2 Flow Rate FiO2 10/28/20 08:06 132/77 10/28/20 08:05 74 134/83 10/28/20 08:00 97.5 87 18 132/77 (95) 97 10/28/20 04:00 74 10/28/20 04:00 97.9 83 20 134/83 (100) 96 10/28/20 00:00 98.2 81 20 130/78 (95) 96 10/28/20 00:00 76 10/27/20 21:54 80 119/75 10/27/20 21:00 Room Air 10/27/20 20:00 97.6 80 18 119/75 (90) 96 10/27/20 20:00 80 10/27/20 17:52 141/90 10/27/20 16:00 78 10/27/20 16:00 97.2 82 21 141/90 (107) 96 10/27/20 12:09 149/93 10/27/20 12:00 79 10/27/20 12:00 98.1 80 20 149/76 (100) 97 General Appearance: no acute distress HEENT: normocephalic Respiratory: chest wall non-tender Cardiovascular: normal peripheral pulses Abdomen: normal bowel sounds, other - constipation Extremities: no edema Laboratory Tests 10/27/20 11:39: POC Whole Blood Glucose 185H 10/27/20 16:34: POC Whole Blood Glucose 142H 10/27/20 19:40: Troponin I 0.005 10/27/20 22:06: POC Whole Blood Glucose [Pending] 10/28/20 05:56: POC Whole Blood Glucose 170H Current Medications Medications (Trade) Dose Ordered Sig/Liz Route PRN Reason Start Time Stop Time Status Last Admin Dose Admin Acetaminophen (Tylenol) 650 mg Q6H PRN ORAL For Headache 10/26/20 21:45 11/25/20 21:44 10/27/20 06:45 Aspirin (ASA) 81 mg DAILY ORAL 10/27/20 09:00 12/11/20 08:59 10/28/20 08:05 Atorvastatin Calcium (Lipitor) 20 mg BEDTIME ORAL 10/27/20 21:00 01/25/21 20:59 10/27/20 21:54 Dextrose (Dextrose 50%) 25 ml Q30M PRN IV Hypoglycemia 10/26/20 22:45 01/24/21 22:44 Dextrose (Dextrose 50%) 50 ml Q30M PRN IV Hypoglycemia 10/26/20 22:45 01/24/21 22:44 Diphenhydramine HCl (Benadryl) 25 mg Q6H PRN IVP Itching 10/26/20 23:30 11/25/20 23:29 10/27/20 00:06 Docusate Sodium (Colace) 100 mg TWICE A DAY ORAL 10/28/20 10:15 11/27/20 10:14 EZETIMIBE (Zetia) 10 mg BEDTIME ORAL 10/27/20 21:00 11/26/20 20:59 10/27/20 21:54 Heparin Sodium (Porcine) (Heparin 5000 units/ml) 5,000 units EVERY 12 HOURS SUBQ 10/26/20 21:00 12/10/20 20:59 10/28/20 08:07 Hydrochlorothiazide (Hydrodiuril) 50 mg DAILY ORAL 10/27/20 09:00 11/26/20 08:59 10/28/20 08:06 Insulin Aspart (NovoLOG) BEFORE MEALS AND HS SUBQ 10/27/20 06:30 01/25/21 06:29 10/28/20 05:59 Losartan Potassium (Cozaar) 100 mg DAILY ORAL 10/27/20 09:00 11/26/20 08:59 10/28/20 08:06 Metoprolol Tartrate (Lopressor) 50 mg Q12HR ORAL 10/27/20 09:00 01/25/21 08:59 10/28/20 08:05 Ondansetron HCl (Zofran) 4 mg Q6H PRN IVP Nausea & Vomiting 10/26/20 21:45 11/25/20 21:44 10/28/20 08:59 Pantoprazole (Protonix) 40 mg DAILY ORAL 10/27/20 09:00 11/26/20 08:59 10/28/20 08:05 Pioglitazone HCl (Actos) 15 mg DAILY ORAL 10/27/20 09:00 11/26/20 08:59 10/28/20 08:05 Assessment/Plan Assessment/Plan Assessment/Plan IMPRESSION: 1. Hypertensive urgency. 2. Acute coronary syndrome. 3. Hypokalemia. 4. Type 2 diabetes mellitus. 5. Mild protein-calorie malnutrition. 6. Acute diastolic congestive heart failure, likely precipitated by blood pressure elevation. PLAN: 1. Cardiac monitoring. 2. Serial troponins noted 3. Noted ipid panel and thyroid function. 4. Replaced potassium. 5. Venous duplex negative 6. Antiplatelet therapy. 7. DVT prophylaxis. 8. Cautious up titration of multi-drug antihypertensive and antianginal regimen. 9.Cardiology consult noted; patient cleared for discharge 10. Constipation: Colace 100 mg bid 10. pt will be discharge today. The care of this patient was discussed with supervising physician Kaden Tyler NP Oct 28, 2020 10:23
[2020-10-28 12:00] VITALS: BP 153/89
[2020-10-28 15:45] VITALS: BP 135/77
--- NOTE | 2020-10-28 16:48 | Cardiology Progress Note ---
Subjective DATE OF SERVICE: Oct 28, 2020 BP parameters improved, and predominantly stable. No recurrent CP; denies SOB. Troponins negative Venous duplex: negative for DVT Repeat CXR today pending Objective Last 24 Hour Vital Signs Date Time Temp Pulse Resp B/P (MAP) Pulse Ox O2 Delivery O2 Flow Rate FiO2 10/28/20 15:45 97.4 81 18 135/77 (96) 98 10/28/20 12:00 84 10/28/20 12:00 98.0 80 20 153/89 (110) 96 10/28/20 08:06 132/77 10/28/20 08:05 74 134/83 10/28/20 08:00 97.5 87 18 132/77 (95) 97 10/28/20 08:00 79 10/28/20 04:00 74 10/28/20 04:00 97.9 83 20 134/83 (100) 96 10/28/20 00:00 98.2 81 20 130/78 (95) 96 10/28/20 00:00 76 10/27/20 21:54 80 119/75 10/27/20 21:00 Room Air 10/27/20 20:00 97.6 80 18 119/75 (90) 96 10/27/20 20:00 80 10/27/20 17:52 141/90 HEENT: normal ENT inspection RHYTHM: NSR LUNGS: lungs clear bilaterally CARDIAC: normal rate, regular rhythm, normal S1 and S2, gallop/S4 ABDOMEN: normal bowel sounds, non tender, soft, no organomegaly EXTREMITIES: normal range of motion, non-tender, trace edema Laboratory Tests Test 10/27/20 19:40 10/27/20 22:06 10/28/20 05:56 10/28/20 11:50 Troponin I 0.005 ng/mL (0.000-0.056) POC Whole Blood Glucose Pending 170 MG/DL (74-106) H 219 MG/DL (74-106) H Test 10/28/20 16:34 POC Whole Blood Glucose 168 MG/DL (74-106) H Assessment/Plan Assessment/Plan Hypertensive urgency Acute coronary syndrome precipitated by above Acute diastolic CHF resolved Abnormal CXR Maintain current antiHTN meds Continue antiplt meds Check repeat CXR result Outpatient stress test No add'l cardiovascular studies presently planned Shawn Pérez MD Oct 28, 2020 16:48
--- NOTE | 2020-10-28 17:51 | NUR ---
NURSE NOTES: DISCHARGED HOME WITH INSTRUCTIONS. REMOVED DIRECT SUPPORT STAFF MEMBER. REMOVED IV ACCESS. VERIFIED HOME ADDRESS. SPOKE WITH SON, VERONICA AND PICKED UP BY HER SON. IN STABLE CONDITION. PERSONAL BELONGINGS NOTED. VERBALIZED UNDERSTANDING.
--- NOTE | 2020-10-29 13:59 | Diagnostic Imaging Report ---
EXAM: XR Chest, 2 Views CLINICAL HISTORY: ABN CHST TECHNIQUE: Frontal and lateral views of the chest. COMPARISON: Chest radiograph on 10/26/2020 FINDINGS: Hardware: None. Lungs/pleura: Normal. No focal consolidation. No pleural effusion or pneumothorax. Heart/mediastinum: Decreased prominence of the right peritracheal stripe which is likely related to patient rotation. No cardiomegaly. Soft tissues: Unremarkable. Bones: No acute fracture. Upper abdomen: Normal. IMPRESSION: No focal consolidation.
--- NOTE | 2020-10-31 14:57 | Discharge Summary ---
Discharge Summary Discharge Summary _ Date of admission: 10/26/2020 Date of discharge: 10/28/[address] Lara History of Present Illness and Brief Hospital Course Ms. Montes De Oca is a 75-year-old female with past medical history of hypertension, hyperlipidemia, and diabetes mellitus, who was brought in by EMS from home for evaluation of dizziness and shortness of breath. She also reported of chest discomfort. Her systolic and diastolic blood pressures were elevated on arrival and she reported that her antihypertensives were changed recently. However, she did not remember the name of the new antihypertensives. EKG showed normal sinus rhythm without ST segment changes. Chest x-ray showed cardiomegaly. Patient was admitted to the hospital for further management. Her acute diastolic congestive heart failure was likely precipitated by elevated blood pressure. Cautious up titration of multidrug antihypertensives and antianginal regimen were in place. The serial troponin was negative. Patient denied chest pain or shortness of breath. Venous duplex ultrasound of lower extremities were negative for DVT. Antiplatelet therapy was in place for DVT prophylaxis. Given resolution of her initial signs and symptoms, negative work- up, and negative imaging studies, it was deemed appropriate to discharge the patient and have her follow-up with a director digital communications for a stress test as an outpatient. She was discharged home on 10/28/2020 in medically stable condition. Consultants: Cardiology Dr. Pérez Discharge Condition Improved and stable Final diagnoses Hypertensive urgency Acute coronary syndrome Acute diastolic CHF, resolved Hypokalemia Type 2 diabetes mellitus Mild proteincalorie malnutrition I have been assigned to dictate discharge summary for this account. I was not involved in the patient's management Joshua Tamez Oct 31, 2020 14:57
== END 2020-10-28 17:45 | disposition home or self-care (01) | DRG 304 ==
LOC: EDBD 12:36 → EMR 14:01 → 2E 16:45 → EDBEDREQ 18:00
DX: I16.0 Hypertensive urgency (principal); I50.31 Acute diastolic (congestive) heart failure; I24.9 Acute ischemic heart disease, unspecified; E44.1 Mild protein-calorie malnutrition; I11.0 Hypertensive heart disease with heart failure; E87.6 Hypokalemia; E11.9 Type 2 diabetes mellitus without complications; E78.5 Hyperlipidemia, unspecified
CPT/HCPCS: 36415; 71045; 80053; 80061; 82962; 83036; 83735; 83880; 84443; 84484; 85025; 85730; 93005; 93970; 96374; 96375; 99285; J1815; J2405; J8499